=== PATIENT | female | born 1990 | race Caucasian/White ===

== ENCOUNTER 2017-12-12 20:10 | Emergency (ER) | payer OTHER ==
[2017-12-12 20:17] VITALS: BP 134/81
--- NOTE | 2017-12-12 20:41 | RADIOLOGY REPORT (SQ) ---
EXAM DESCRIPTION: CHEST PA/LAT COMPLETED DATE/TIME: 12/12/2017 8:24 pm REASON FOR STUDY: cough COMPARISON: 02/03/2016 EXAM PARAMETERS: NUMBER OF VIEWS: two views TECHNIQUE: Digital Frontal and Lateral radiographic views of the chest acquired. RADIATION DOSE: NA LIMITATIONS: none FINDINGS: LUNGS AND PLEURA: No opacities, masses or pneumothorax. No pleural effusion. MEDIASTINUM AND HILAR STRUCTURES: No masses or contour abnormalities. HEART AND VASCULAR STRUCTURES: Heart normal size. No evidence for failure. BONES: No acute findings. HARDWARE: None in the chest. OTHER: No other significant finding. IMPRESSION: NO SIGNIFICANT RADIOGRAPHIC FINDING IN THE CHEST. TECHNICAL DOCUMENTATION: JOB ID: [id number] [employer]- All Rights Reserved
== END 2017-12-12 22:00 | disposition left against medical advice (07) ==
LOC: ER 20:10
DX: Z53.21 Procedure and treatment not carried out due to patient leaving prior to being seen by health care provider (principal)
CPT/HCPCS: 71046

== ENCOUNTER 2018-03-16 23:20 | Emergency (ER) | payer BC, OTHER ==
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
[2018-03-17 00:11] LABS: ABSOLUTE BASOPHILS # (AUTO) 0.1 10^3/uL (0.0-0.2); ABSOLUTE EOSINOPHILS # (AUTO) 0.2 10^3/uL (0.0-0.6); ABSOLUTE LYMPHOCYTES (AUTO) 1.7 10^3/uL (0.5-4.7); ABSOLUTE MONOCYTES (AUTO) 0.5 10^3/uL (0.1-1.4); ABSOLUTE NEUT (AUTO) 4.8 10^3/uL (1.7-8.2); BASOPHILS % (AUTO) 1.1 % (0-2); EOSINOPHILS % (AUTO) 2.5 % (0-6); HEMATOCRIT 39.5 % (36.0-47.0); HEMOGLOBIN 13.6 g/dL (12.0-15.5); LYMPHOCYTES % (AUTO) 23.7 % (13-45); MEAN CORPUSCULAR HEMOGLOBIN 30.4 pg (27.0-33.4); MEAN CORPUSCULAR HGB CONC 34.4 g/dL (32.0-36.0); MEAN CORPUSCULAR VOLUME 89 fl (80-97); PLATELET COUNT 320 10^3/uL (150-450); RED BLOOD COUNT 4.46 10^6/uL (3.72-5.28); RED CELL DISTRIBUTION WIDTH 13.2 % (11.5-14.0); SEGMENTED NEUTROPHILS % (AUTO) 65.7 % (42-78); TOTAL CELLS COUNTED % (AUTO) 100 %; WHITE BLOOD COUNT 7.3 10^3/uL (4.0-10.5)
[2018-03-17 00:16] LABS: ALANINE AMINOTRANSFERASE 28 U/L (9-52); ALBUMIN 4.4 g/dL (3.5-5.0); ALKALINE PHOSPHATASE 75 U/L (38-126); ANION GAP 13 (5-19); ASPARTATE AMINO TRANSFERASE 20 U/L (14-36); BILIRUBIN,DIRECT 0.1 mg/dL (0.0-0.4); BILIRUBIN,TOTAL 0.2 mg/dL (0.2-1.3); BLOOD UREA NITROGEN 14 mg/dL (7-20); CALCIUM 9.6 mg/dL (8.4-10.2); CARBON DIOXIDE 24 mmol/L (22-30); CHLORIDE 105 mmol/L (98-107); GLUCOSE 125 mg/dL (75-110); POTASSIUM 4.2 mmol/L (3.6-5.0); SODIUM 141.8 mmol/L (137-145); TOTAL PROTEIN 6.8 g/dL (6.3-8.2)
[2018-03-17 00:17] LABS: ACETAMINOPHEN < 10 ug/mL (10-30); ALCOHOL < 10 mg/dL (NONE DETECTED); SALICYLATE < 1.0 mg/dL (2.0-20.0)
[2018-03-17 02:12] LABS: APPEARANCE,URINE CLOUDY; BILIRUBIN,URINE NEGATIVE (NEGATIVE); COLOR,URINE AMBER; GLUCOSE, URINE NEGATIVE (NEGATIVE); KETONES,URINE NEGATIVE (NEGATIVE); LEUKOCYTE ESTERASE,URINE SMALL (NEGATIVE); NITRITE,URINE POSITIVE (NEGATIVE); PROTEIN,URINE NEGATIVE (NEGATIVE); URINE SPECIFIC GRAVITY 1.028; UROBILINOGEN,URINE NEGATIVE mg/dL (<2.0)
[2018-03-17 03:17] LABS: URINE COCAINE SCREEN NEGATIVE
[2018-03-17 03:57] LABS: URINE BARBITURATES SCREEN NEGATIVE; URINE BENZODIAZEPINES SCREEN NEGATIVE; URINE MARIJUANA (THC) SCREEN NEGATIVE; URINE METHADONE SCREEN NEGATIVE; URINE PHENCYCLIDINE SCREEN NEGATIVE
--- NOTE | 2018-03-17 06:18 | EKG REPORT ---
SEVERITY:- NORMAL ECG - SINUS RHYTHM : Confirmed by: Navin Box MD 17-Mar-2018 06:17:42
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
--- NOTE | 2018-03-17 10:19 | ER Document Report ---
Doctor's Note Notes: 03/17/18 10:17 Patient seen and examined. She is having no signs of serotonin syndrome or Zoloft overdose. Mental health evaluated patient and did not think that patient is an active suicidal risk. She has a history of borderline personality disorder and said that this was an attention-seeking behavior. Patient provided resources for homelessness and given very strict return precautions.
[2018-03-17 12:18] VITALS: BP 127/77
== END 2018-03-17 12:17 | disposition home or self-care (01) ==
LOC: ER 23:20
DX: T43.222A Poisoning by selective serotonin reuptake inhibitors, intentional self-harm, initial encounter (principal); F60.3 Borderline personality disorder; Z63.5 Disruption of family by separation and divorce; Z79.899 Other long term (current) drug therapy
CPT/HCPCS: 36415; 80053; 80307; 81001; 84703; 85025; 93005; 93010; 99285

== ENCOUNTER 2018-04-22 11:10 | Emergency (ER) | payer BC ==
[2018-04-22 11:14] VITALS: BP 134/71
[2018-04-22] MEDS ORDERED: PROMETHAZINE HCL 25 MG TABLET PO ONE (11:25)
--- NOTE | 2018-04-22 11:31 | ER Document Report ---
ED General - General Chief Complaint: Vomiting Stated Complaint: VOMITING Time Seen by Provider: 04/22/18 11:19 Notes: 27-year-old female here with complaints of vomiting that started earlier this morning. She has had several episodes of vomiting but no diarrhea fevers chills dysuria frequency hesitancy. She has had some upper abdominal cramping that is intermittent. It is worse with vomiting. She does not currently have any. She has not tried anything for the symptoms. There is a known sick contact at work who has similar symptoms. TRAVEL OUTSIDE OF THE [place] IN LAST 30 DAYS: No - Related Data Allergies/Adverse Reactions: avocado [Avocado] Allergy (Verified 04/22/18 11:11) throat closes latex [Latex] Allergy (Verified 04/22/18 11:11) blisters,rash ondansetron [From Zofran (as hydrochloride)] Allergy (Verified 04/22/18 11:11) Raspberry Flavor, Artificial * [Raspberry Flavor, Artificial] Allergy (Verified 04/22/18 11:11) throat closes,rash Past Medical History - Social History Smoking Status: Current Every Day Smoker Chew tobacco use (# tins/day): No Frequency of alcohol use: None Drug Abuse: None Family History: Arthritis, DM, Hyperlipidemia, Hypertension, Malignancy Patient has suicidal ideation: No Patient has homicidal ideation: No - Past Medical History Cardiac Medical History: Denies: Hx Coronary Artery Disease, Hx Heart Attack, Hx Hypertension Pulmonary Medical History: Reports: Hx Bronchitis Denies: Hx Asthma, Hx COPD, Hx Pneumonia Neurological Medical History: Reports: Hx Migraine. Denies: Hx Cerebrovascular Accident, Hx Seizures Endocrine Medical History: Denies: Hx Diabetes Mellitus Type 1, Hx Diabetes Mellitus Type 2 Renal/ Medical History: Reports: Hx Ovarian Cysts. Denies: Hx Peritoneal Dialysis GI Medical History: Reports: Hx Crohn's Disease, Hx Colonoscopy Musculoskeltal Medical History: Denies Hx Arthritis, Reports Hx Musculoskeletal Trauma - 5th finger right hand Psychiatric Medical History: Reports: Hx Borderline Personality Disorder, Hx Depression, Hx Obsessive Compulsive Disorder Traumatic Medical History: Reports: Hx Fractures - 5th finger Past Surgical History: Reports: Hx Cholecystectomy, Hx Oral Surgery - wisdom teeth. Denies: Hx Hysterectomy - Immunizations Immunizations up to date: Yes Hx Diphtheria, Pertussis, Tetanus Vaccination: Yes - june 2015 Review of Systems - Review of Systems Notes: See history of present illness for pertinent positive review of systems; otherwise all review of systems have been reviewed and are negative Physical Exam - Vital signs Vitals: Temp Pulse Resp BP Pulse Ox 98.3 F 109 H 20 134/71 H 97 04/22/18 11:13 04/22/18 11:13 04/22/18 11:13 04/22/18 11:13 04/22/18 11:13 - Notes Notes: PHYSICAL EXAMINATION: GENERAL: Well-appearing and in no acute distress. HEAD: Atraumatic, normocephalic. EYES: Pupils equal round and reactive to light, extraocular movements intact, sclera anicteric, conjunctiva are normal. ENT: nares patent, oropharynx clear without exudates. Moist mucous membranes. NECK: Normal range of motion, supple without lymphadenopathy LUNGS: CTAB and equal. No wheezes rales or rhonchi. HEART: Minimally tachycardic rate and regular rhythm without murmurs ABDOMEN: Soft, no tenderness. No facial grimacing/wincing upon palpation. No guarding, no rebound. EXTREMITIES: Normal range of motion, no pitting edema. No cyanosis. NEUROLOGICAL: Cranial nerves grossly intact. Normal sensory/motor exams. PSYCH: Normal mood, normal affect. SKIN: Warm, Dry, normal turgor, no rashes or lesions noted Course - Re-evaluation Re-evalutation: 04/22/18 11:30 MEDICAL DECISION MAKING: Concern for gastrointestinal infection, most likely viral Patient allergic to Zofran so dose of Phenergan here and prescription Phenergan tabs/suppositories Patient is well-appearing nontoxic, only minimally tachycardic, do not feel IV fluids emergently needed Instructed patient on fever control with Tylenol and/or (if applicable) Motrin Also discussed keeping hydrated with water or Gatorade/Pedialyte Instructed follow-up PCP next day or few Patient understands and agrees to the plan of care - Vital Signs Vital signs: Temp Pulse Resp BP Pulse Ox 98.3 F 109 H 20 134/71 H 97 04/22/18 11:13 04/22/18 11:13 04/22/18 11:13 04/22/18 11:13 04/22/18 11:13 Discharge - Discharge Clinical Impression: Nausea vomiting and diarrhea Condition: Good Disposition: HOME, SELF-CARE Additional Instructions: You were seen in the emergency department at [facility]. You likely have a gastrointestinal infection, most likely viral. Use Motrin and/or Tylenol for fever control. Use the Zofran tablets as needed for vomiting however if you cannot keep down the tablets, use the suppositories prescribed ( both of these medicines will make you sleepy). Stay hydrated. Please followup with your primary physician in the next few days for further management/ evaluation. Please return to the emergency department for worsening of symptoms or any symptom that you deem to be concerning or life-threatening. Thank you for allowing us to be part of your care. This is your school/work note for your Emergency Department evaluation today. Prescriptions: Promethazine HCl [Phenergan 25 mg Tablet] 1 tab PO Q6H PRN #15 tablet PRN Reason: Promethazine HCl [Phenergan 25 mg Supp.rect] 1 supp WA Q6H #12 supp.rect
== END 2018-04-22 11:33 | disposition home or self-care (01) ==
LOC: ER 11:10
DX: R19.7 Diarrhea, unspecified (principal); R11.2 Nausea with vomiting, unspecified; R10.10 Upper abdominal pain, unspecified; F17.200 Nicotine dependence, unspecified, uncomplicated; Z91.040 Latex allergy status; Z90.49 Acquired absence of other specified parts of digestive tract
CPT/HCPCS: 99283

== ENCOUNTER 2018-07-30 00:53 | Emergency (ER) | payer BC ==
[2018-07-30 01:01] VITALS: BP 132/89
[2018-07-30] MEDS ORDERED: NORMAL SALINE 1000 ML 1,000 ML IV ONE (01:51)
[2018-07-30] MEDS ORDERED: METOCLOPRAMIDE HCL INJ/PF 10 MG/2 ML SDV IV ONE (01:51)
--- NOTE | 2018-07-30 01:51 | ER Document Report ---
ED GI/ - General Chief Complaint: Nausea/Vomiting Stated Complaint: THROWING UP Time Seen by Provider: 07/30/18 01:44 Notes: Patient is a 27-year-old female that comes emergency department for chief complaint of vomiting and diarrhea for the past 5 days. She denies fever. She denies dysuria, specific flank pain, vaginal bleeding or discharge. She denies any obvious contacts, raw food, recent travel, recent antibiotics. Denies any abdominal surgeries or daily medications. LMP within the past month. TRAVEL OUTSIDE OF THE [place] IN LAST 30 DAYS: No - Related Data Allergies/Adverse Reactions: avocado [Avocado] Allergy (Verified 04/22/18 11:11) throat closes latex [Latex] Allergy (Verified 04/22/18 11:11) blisters,rash ondansetron [From Zofran (as hydrochloride)] Allergy (Verified 04/22/18 11:11) Raspberry Flavor, Artificial * [Raspberry Flavor, Artificial] Allergy (Verified 04/22/18 11:11) throat closes,rash Past Medical History - General Information source: Patient - Social History Smoking Status: Current Every Day Smoker Frequency of alcohol use: None Drug Abuse: None Lives with: Family Family History: Arthritis, DM, Hyperlipidemia, Hypertension, Malignancy Patient has suicidal ideation: No Patient has homicidal ideation: No - Past Medical History Cardiac Medical History: Denies: Hx Coronary Artery Disease, Hx Heart Attack, Hx Hypertension Pulmonary Medical History: Reports: Hx Bronchitis Denies: Hx Asthma, Hx COPD, Hx Pneumonia Neurological Medical History: Reports: Hx Migraine. Denies: Hx Cerebrovascular Accident, Hx Seizures Endocrine Medical History: Denies: Hx Diabetes Mellitus Type 1, Hx Diabetes Mellitus Type 2 Renal/ Medical History: Reports: Hx Ovarian Cysts. Denies: Hx Peritoneal Dialysis GI Medical History: Reports: Hx Crohn's Disease, Hx Colonoscopy Musculoskeletal Medical History: Denies Hx Arthritis, Reports Hx Musculoskeletal Trauma - 5th finger right hand Psychiatric Medical History: Reports: Hx Borderline Personality Disorder, Hx Depression, Hx Obsessive Compulsive Disorder Traumatic Medical History: Reports: Hx Fractures - 5th finger Past Surgical History: Reports: Hx Cholecystectomy, Hx Oral Surgery - wisdom teeth. Denies: Hx Hysterectomy - Immunizations Immunizations up to date: Yes Hx Diphtheria, Pertussis, Tetanus Vaccination: Yes - june 2015 Review of Systems - Review of Systems Constitutional: No symptoms reported EENT: No symptoms reported Cardiovascular: No symptoms reported Respiratory: No symptoms reported Gastrointestinal: See HPI Genitourinary: No symptoms reported Female Genitourinary: No symptoms reported Musculoskeletal: No symptoms reported Skin: No symptoms reported Hematologic/Lymphatic: No symptoms reported Neurological/Psychological: No symptoms reported Physical Exam - Vital signs Vitals: Temp Pulse Resp BP Pulse Ox 99.2 F 88 16 132/89 H 100 07/30/18 00:57 07/30/18 00:57 07/30/18 00:57 07/30/18 00:57 07/30/18 00:57 - Notes Notes: GENERAL: Alert, interacts well. No acute distress. HEAD: Normocephalic, atraumatic. EYES: Pupils equal, round, and reactive to light. Extraocular movements intact. ENT: Oral mucosa moist, tongue midline. NECK: Full range of motion. Supple. Trachea midline. LUNGS: Clear to auscultation bilaterally, no wheezes, rales, or rhonchi. No respiratory distress. HEART: Regular rate and rhythm. No murmur ABDOMEN: Mild generalized tenderness, nondistended, no guarding, no rigidity. bowel sounds present in all 4 quadrants. EXTREMITIES: Moves all 4 extremities spontaneously. No edema, normal radial and dorsalis pedis pulses bilaterally. No cyanosis. BACK: no cervical, thoracic, lumbar midline tenderness. No saddle anesthesia, normal distal neurovascular exam. NEUROLOGICAL: Alert and oriented x3. Normal speech. [cranial nerves II through XII grossly intact]. PSYCH: Normal affect, normal mood. SKIN: Warm, dry, normal turgor. No rashes or lesions noted. Course - Re-evaluation Re-evalutation: There were labs initiated on protocol, I did evaluate the patient, she is smiling, well-appearing, has mild generalized abdominal tenderness without guarding, she is very well-appearing. Before I was able to adjust orders or further treat the patient I was told by the nursing staff that patient had suddenly eloped, running out of the department after her significant other. - Vital Signs Vital signs: Temp Pulse Resp BP Pulse Ox 99.2 F 88 16 132/89 H 100 07/30/18 00:57 07/30/18 00:57 07/30/18 00:57 07/30/18 00:57 07/30/18 00:57 - Laboratory Result Diagrams: 07/30/18 02:00 07/30/18 02:00 Laboratory results interpreted by me: 07/30/18 07/30/18 02:00 02:00 RDW 14.1 H Eosinophils % 8.8 H Absolute Eosinophils 0.9 H Urine Protein 30 H Urine Bilirubin SMALL H Urine Urobilinogen 4.0 H Ur Leukocyte Esterase LARGE H Discharge - Discharge Clinical Impression: Abdominal pain Qualifiers: Abdominal location: generalized Qualified Code(s): R10.84 - Generalized abdominal pain Condition: Stable Disposition: ELOPED
[2018-07-30 02:23] LABS: ABSOLUTE BASOPHILS # (AUTO) 0.1 10^3/uL (0.0-0.2); ABSOLUTE EOSINOPHILS # (AUTO) 0.9 10^3/uL (0.0-0.6); ABSOLUTE LYMPHOCYTES (AUTO) 3.1 10^3/uL (0.5-4.7); ABSOLUTE MONOCYTES (AUTO) 0.6 10^3/uL (0.1-1.4); ABSOLUTE NEUT (AUTO) 5.4 10^3/uL (1.7-8.2); BASOPHILS % (AUTO) 1.5 % (0-2); EOSINOPHILS % (AUTO) 8.8 % (0-6); HEMATOCRIT 43.4 % (36.0-47.0); HEMOGLOBIN 14.7 g/dL (12.0-15.5); LYMPHOCYTES % (AUTO) 30.6 % (13-45); MEAN CORPUSCULAR HEMOGLOBIN 29.2 pg (27.0-33.4); MEAN CORPUSCULAR HGB CONC 33.9 g/dL (32.0-36.0); MEAN CORPUSCULAR VOLUME 86 fl (80-97); MONOCYTES % (AUTO) 6.3 % (3-13); PLATELET COUNT 318 10^3/uL (150-450); RED BLOOD COUNT 5.04 10^6/uL (3.72-5.28); RED CELL DISTRIBUTION WIDTH 14.1 % (11.5-14.0); SEGMENTED NEUTROPHILS % (AUTO) 52.8 % (42-78); TOTAL CELLS COUNTED % (AUTO) 100 %; WHITE BLOOD COUNT 10.1 10^3/uL (4.0-10.5)
[2018-07-30 02:33] LABS: APPEARANCE,URINE CLOUDY; BILIRUBIN,URINE SMALL (NEGATIVE); COLOR,URINE AMBER; GLUCOSE, URINE NEGATIVE (NEGATIVE); KETONES,URINE NEGATIVE (NEGATIVE); LEUKOCYTE ESTERASE,URINE LARGE (NEGATIVE); NITRITE,URINE NEGATIVE (NEGATIVE); PROTEIN,URINE 30 mg/dL (NEGATIVE); URINE SPECIFIC GRAVITY 1.029
[2018-07-30 02:34] LABS: ALANINE AMINOTRANSFERASE 15 U/L (9-52); ALBUMIN 4.4 g/dL (3.5-5.0); ALKALINE PHOSPHATASE 95 U/L (38-126); ANION GAP 11 (5-19); ASPARTATE AMINO TRANSFERASE 22 U/L (14-36); BILIRUBIN,DIRECT 0.3 mg/dL (0.0-0.4); BILIRUBIN,TOTAL 0.3 mg/dL (0.2-1.3); BLOOD UREA NITROGEN 12 mg/dL (7-20); CALCIUM 9.9 mg/dL (8.4-10.2); CARBON DIOXIDE 27 mmol/L (22-30); CHLORIDE 105 mmol/L (98-107); GLUCOSE 84 mg/dL (75-110); LIPASE 39.4 U/L (23-300); POTASSIUM 4.3 mmol/L (3.6-5.0); TOTAL PROTEIN 8.1 g/dL (6.3-8.2)
== END 2018-07-30 02:26 | disposition left against medical advice (07) ==
LOC: ER 00:53
DX: R10.84 Generalized abdominal pain (principal); R11.2 Nausea with vomiting, unspecified; F17.200 Nicotine dependence, unspecified, uncomplicated; Z91.040 Latex allergy status; Z90.49 Acquired absence of other specified parts of digestive tract
CPT/HCPCS: 99281; 96374; 36415; 83690; 85025; 80053; 81001; J2765; J7030

== ENCOUNTER 2019-02-25 23:56 | Emergency (ER) | payer BC ==
[2019-02-26] MEDS ORDERED: ACTIVATED CHARCOAL 25 GM BOTTLE PO ONE (00:12)
[2019-02-26] MEDS ORDERED: NORMAL SALINE 1000 ML 1,000 ML IV ONE ×2 (00:14→01:30)
[2019-02-26 00:48] LABS: ABSOLUTE BASOPHILS # (AUTO) 0.1 10^3/uL (0.0-0.2); ABSOLUTE EOSINOPHILS # (AUTO) 0.1 10^3/uL (0.0-0.6); ABSOLUTE MONOCYTES (AUTO) 0.4 10^3/uL (0.1-1.4); ABSOLUTE NEUT (AUTO) 4.5 10^3/uL (1.7-8.2); BASOPHILS % (AUTO) 1.1 % (0-2); EOSINOPHILS % (AUTO) 1.4 % (0-6); HEMATOCRIT 39.8 % (36.0-47.0); HEMOGLOBIN 13.9 g/dL (12.0-15.5); LYMPHOCYTES % (AUTO) 28.4 % (13-45); MEAN CORPUSCULAR HEMOGLOBIN 29.5 pg (27.0-33.4); MEAN CORPUSCULAR HGB CONC 34.8 g/dL (32.0-36.0); MEAN CORPUSCULAR VOLUME 85 fl (80-97); PLATELET COUNT 257 10^3/uL (150-450); RED BLOOD COUNT 4.71 10^6/uL (3.72-5.28); RED CELL DISTRIBUTION WIDTH 13.5 % (11.5-14.0); SEGMENTED NEUTROPHILS % (AUTO) 63.1 % (42-78); TOTAL CELLS COUNTED % (AUTO) 100 %; WHITE BLOOD COUNT 7.1 10^3/uL (4.0-10.5)
[2019-02-26 01:08] LABS: ALANINE AMINOTRANSFERASE 29 U/L (9-52); ALBUMIN 4.3 g/dL (3.5-5.0); ALKALINE PHOSPHATASE 84 U/L (38-126); ANION GAP 10 (5-19); ASPARTATE AMINO TRANSFERASE 31 U/L (14-36); BILIRUBIN,DIRECT 0.2 mg/dL (0.0-0.4); BILIRUBIN,TOTAL 0.5 mg/dL (0.2-1.3); BLOOD UREA NITROGEN 14 mg/dL (7-20); CALCIUM 9.3 mg/dL (8.4-10.2); CARBON DIOXIDE 23 mmol/L (22-30); CHLORIDE 105 mmol/L (98-107); GLUCOSE 115 mg/dL (75-110); POTASSIUM 3.5 mmol/L (3.6-5.0); SODIUM 138.3 mmol/L (137-145); TOTAL PROTEIN 7.6 g/dL (6.3-8.2)
[2019-02-26 01:14] LABS: ACETAMINOPHEN < 10 ug/mL (10-30); ALCOHOL < 10 mg/dL (NONE DETECTED); SALICYLATE < 1.0 mg/dL (2.0-20.0)
--- NOTE | 2019-02-26 01:14 | ER Document Report ---
Addendum entered and electronically signed by PIPPA HERMAN LCSWA 02/26/19 11:06: Discharge - Discharge Clinical Impression: Suicide attempt, initial encounter, Severe major depression, Borderline persona lity disorder Drug overdose Qualifiers: Encounter type: initial encounter Injury intent: intentional self-harm Qualified Code(s): T50.902A - Poisoning by unspecified drugs, medicaments and biological substances, intentional self-harm, initial encounter Condition: Stable Disposition: HOME, SELF-CARE Additional Instructions: You have been evaluated both medical and behavioral health teams have been deemed appropriate for discharge. You are highly encouraged to follow-up with your outpatient mental health provider, [facility] for continued medication management. You are also encouraged to start engaging in Cognitive Behavioral Therapy to assist you in reinterpreting in your environment, learning triggers and building coping skills. You have provided a local resource list of area providers including mobile crisis contact information. DEPRESSION: Your evaluation reveals that you have mental depression. While symptoms may be vague, they often include disturbance of sleep, fatigue, loss of appetite, and general loss of interest in life. While depression may be a side effect of drugs, or a reaction to a major change in your life, many cases have no known cause. If depression is acute, and related to a major loss in your life, you can expect it to clear completely with time. If you have been depressed a long time, are prone to repeated bouts of depression or low mood, or have been thinking of suicide, get help. Depression can be treated with anti-depressant medication and counselling. Long-term depression will often take a few weeks to clear, even with appropriate medication. Follow-up care is important. SUICIDAL IDEATION: Suicidal ideation is a common medical term for thoughts about suicide, which may be as detailed as a formulated plan, without the suicidal act itself. Although most people who undergo suicidal ideation do not commit suicide, some go on to make suicide attempts. The range of suicidal ideation varies greatly from fleeting to detailed planning, role playing, and unsuccessful attempts. While thoughts about suicide are common, most people do not carry out serious actions to commit suicide. Based upon your evaluation and discussion with you, we do not believe you are currently at risk to act upon your thoughts of suicide. You have agreed to return to the Emergency Department, at any time, if you feel inclined to act upon your suicidal thoughts. FOLLOW-UP CARE: If you have been referred to a physician for follow-up care, call the physicians office for an appointment as you were instructed or within the next two days. If you experience worsening or a significant change in your symptoms, notify the physician immediately or return to the Emergency Department at any time for re-evaluation. Referrals: HITESH NAVARRO PA-C [Primary Care Provider] - Follow up as needed [facility] [Outside] - Follow up as needed [facility] [Outside] - Follow up in 3-5 days Addendum entered and electronically signed by MATTHEW MENENDEZ DO 02/26/19 08:00: Course - Re-evaluation Re-evalutation: 02/26/19 08:00 Patient with overdose of Seroquel ranula patient this morning at 730 alert oriented x3 no obvious distress we will medically clear for psych to see - Vital Signs Vital signs: Temp Pulse Resp BP Pulse Ox 98.2 F 15 118/67 95 02/26/19 06:00 02/26/19 06:00 02/26/19 06:00 02/26/19 06:00 - Laboratory Result Diagrams: 02/26/19 00:34 02/26/19 00:34 Laboratory results interpreted by me: 02/26/19 02/26/19 00:34 01:25 Potassium 3.5 L Glucose 115 H Urine Ketones TRACE H Urine Blood SMALL H Ur Leukocyte Esterase TRACE H Salicylates < 1.0 L Acetaminophen < 10 L Original Note: ED Psych Disorder / Suicide - General Chief Complaint: Overdose Stated Complaint: SUICIDAL IDEATION Time Seen by Provider: 02/26/19 00:11 Primary Care Provider: HITESH NAVARRO PA-C [Primary Care Provider] - Follow up as needed Mode of Arrival: Ambulatory Information source: Patient Notes: Patient told me that she overdosed on 25 tablets of 25 mg of Seroquel and 2 tablets of 400 mg of Seroquel around 11:30 PM tonight. She says she did that in an attempt to kill herself because she was so depressed after she found out that her was cheating on her. Patient has a history of PTSD, severe depressi on, anxiety and interstitial cystitis. Patient is alert and awake currently and she is able to answer all my questions. She also says she attempted suicide last year he by overdosing on medication. Patient admits to having suicidal ideation. Poison control was immediately called by the charge nurse and they recommend activated charcoal by mouth, symptomatic treatment, EKG, labs, IV fluids and monitoring the patient for a minimum of 6-8 hours. TRAVEL OUTSIDE OF THE [place] IN LAST 30 DAYS: No - HPI Patient complains to provider of: Suicidal ideation, Suicidal attempt Onset: Just prior to arrival Onset was: Sudden Quality of pain: No pain Severity: None Pain Level: Denies Suicide Risk Factors: Depressed, Prior suicide attempt Situational problems related to: Significant other, Spouse Suicide Attempt Method: Overdose Overdose of: Other - Seroquel Normal mood: No Associated symptoms: Depressed Similar symptoms previously: Yes Recently seen / treated by doctor: No - Related Data Allergies/Adverse Reactions: avocado [Avocado] Allergy (Verified 04/22/18 11:11) throat closes latex [Latex] Allergy (Verified 04/22/18 11:11) blisters,rash ondansetron [From Zofran (as hydrochloride)] Allergy (Verified 04/22/18 11:11) Raspberry Flavor, Artificial * [Raspberry Flavor, Artificial] Allergy (Verified 04/22/18 11:11) throat closes,rash Past Medical History - Social History Smoking Status: Unknown if Ever Smoked Family History: Arthritis, DM, Hyperlipidemia, Hypertension, Malignancy - Past Medical History Cardiac Medical History: Denies: Hx Coronary Artery Disease, Hx Heart Attack, Hx Hypertension Pulmonary Medical History: Reports: Hx Bronchitis Denies: Hx Asthma, Hx COPD, Hx Pneumonia Neurological Medical History: Reports: Hx Migraine. Denies: Hx Cerebrovascular Accident, Hx Seizures Endocrine Medical History: Denies: Hx Diabetes Mellitus Type 1, Hx Diabetes Mellitus Type 2 Renal/ Medical History: Reports: Hx Ovarian Cysts. Denies: Hx Peritoneal Dialysis GI Medical History: Reports: Hx Crohn's Disease, Hx Colonoscopy Musculoskeletal Medical History: Denies Hx Arthritis, Reports Hx Musculoskeletal Trauma - 5th finger right hand Psychiatric Medical History: Reports: Hx Borderline Personality Disorder, Hx Depression, Hx Obsessive Compulsive Disorder Traumatic Medical History: Reports: Hx Fractures - 5th finger Past Surgical History: Reports: Hx Cholecystectomy, Hx Oral Surgery - wisdom teeth. Denies: Hx Hysterectomy - Immunizations Immunizations up to date: Yes Hx Diphtheria, Pertussis, Tetanus Vaccination: Yes - june 2015 Review of Systems - Review of Systems Constitutional: No symptoms reported EENT: No symptoms reported Cardiovascular: No symptoms reported Respiratory: No symptoms reported Gastrointestinal: No symptoms reported Genitourinary: No symptoms reported Female Genitourinary: No symptoms reported Musculoskeletal: No symptoms reported Skin: No symptoms reported Hematologic/Lymphatic: No symptoms reported Neurological/Psychological: No symptoms reported -: Yes All other systems reviewed and negative Physical Exam - Vital signs Vitals: Resp 26 H 02/26/19 00:08 Interpretation: Normal - General General appearance: Appears well, Alert - HEENT Head: Normocephalic, Atraumatic Eyes: Normal Pupils: PERRL - Respiratory Respiratory status: No respiratory distress Chest status: Nontender Breath sounds: Normal Chest palpation: Normal - Cardiovascular Rhythm: Regular Heart sounds: Normal auscultation Murmur: No - Abdominal Inspection: Normal Distension: No distension Bowel sounds: Normal Tenderness: Nontender Organomegaly: No organomegaly - Back Back: Normal, Nontender - Extremities General upper extremity: Normal inspection, Nontender, Normal color, Normal ROM, Normal temperature General lower extremity: Normal inspection, Nontender, Normal color, Normal ROM, Normal temperature, Normal weight bearing. No: Мария's sign - Neurological Neuro grossly intact: Yes Cognition: Normal Orientation: AAOx4 Rex Coma Scale Eye Opening: Spontaneous Otis Coma Scale Verbal: Oriented Otis Coma Scale Motor: Obeys Commands Rex Coma Scale Total: 15 Speech: Normal Motor strength normal: LUE, RUE, LLE, RLE Sensory: Normal - Psychological Associated symptoms: Normal affect, Normal mood - Skin Skin Temperature: Warm Skin Moisture: Dry Skin Color: Normal Course - Re-evaluation Re-evalutation: 02/26/19 01:23 On reevaluation patient is still awake and has no new complaints. 02/26/19 05:45 Patient is medically cleared for psychiatric evaluation. - Vital Signs Vital signs: Temp Pulse Resp BP Pulse Ox 98.2 F 16 126/86 H 95 02/26/19 05:00 02/26/19 05:00 02/26/19 05:00 02/26/19 05:00 - Laboratory Result Diagrams: 02/26/19 00:34 02/26/19 00:34 Laboratory results interpreted by me: 02/26/19 02/26/19 00:34 01:25 Potassium 3.5 L Glucose 115 H Urine Ketones TRACE H Urine Blood SMALL H Ur Leukocyte Esterase TRACE H Salicylates < 1.0 L Acetaminophen < 10 L - EKG Interpretation by Me EKG shows normal: Sinus rhythm Rate: Tachycardia - 113 When compared to previous EKG there are: Changes noted Additional EKG results interpreted by me: 02/26/19 01:24 Sinus tachycardia otherwise no change from previous EKG on March 17, 2018. Normal intervals. No ST elevation HI. Critical Care Note - Critical Care Note Total time excluding time spent on procedures (mins): 55 Discharge - Discharge Clinical Impression: Suicide attempt, initial encounter, Severe major depression Drug overdose Qualifiers: Encounter type: initial encounter Injury intent: intentional self-harm Qualified Code(s): T50.902A - Poisoning by unspecified drugs, medicaments and biological substances, intentional self-harm, initial encounter Condition: Stable Disposition: PSYCH HOSP/UNIT Referrals: HITESH NAVARRO PA-C [Primary Care Provider] - Follow up as needed
[2019-02-26 02:16] LABS: APPEARANCE,URINE SLIGHTLY-CLOUDY; BILIRUBIN,URINE NEGATIVE (NEGATIVE); COLOR,URINE STRAW; GLUCOSE, URINE NEGATIVE (NEGATIVE); KETONES,URINE TRACE mg/dL (NEGATIVE); LEUKOCYTE ESTERASE,URINE TRACE (NEGATIVE); NITRITE,URINE NEGATIVE (NEGATIVE); PROTEIN,URINE NEGATIVE (NEGATIVE); URINE SPECIFIC GRAVITY 1.003; UROBILINOGEN,URINE NEGATIVE mg/dL (<2.0)
[2019-02-26 02:30] LABS: URINE AMPHETAMINES SCREEN NEGATIVE; URINE BARBITURATES SCREEN NEGATIVE; URINE BENZODIAZEPINES SCREEN NEGATIVE; URINE COCAINE SCREEN NEGATIVE; URINE MARIJUANA (THC) SCREEN NEGATIVE; URINE METHADONE SCREEN NEGATIVE
[2019-02-26 02:34] LABS: URINE PHENCYCLIDINE SCREEN NEGATIVE
[2019-02-26 09:34] VITALS: BP 112/87
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
--- NOTE | 2019-02-26 14:43 | ER Document Report ---
Doctor's Note Notes: 02/26/19 14:42 Patient seen and evaluated. She is awake, ambulate in without difficulty and has no current complaints. Eye contact is good. She is remorseful about the events of last night and is denying any suicidal ideation now. She states she feels comfortable being discharged home with her mother. Mother is also at bedside and feels comfortable with patient being discharged into her care. She will be with her and will assist with outpatient follow-up. At this time patient is stable for discharge. She was encouraged to follow-up as directed. She was also encouraged to return for any new concerning symptoms.
--- NOTE | 2019-02-26 14:47 | EKG REPORT ---
SEVERITY:- BORDERLINE ECG - SINUS TACHYCARDIA BORDERLINE T WAVE ABNORMALITIES : Confirmed by: Cassie Kline MD 26-Feb-2019 14:46:42
== END 2019-02-26 13:10 | disposition home or self-care (01) ==
LOC: ER 23:56
DX: T43.592A Poisoning by other antipsychotics and neuroleptics, intentional self-harm, initial encounter (principal); F32.9 Major depressive disorder, single episode, unspecified; F60.3 Borderline personality disorder; R00.0 Tachycardia, unspecified; Z63.0 Problems in relationship with spouse or partner; Z91.018 Allergy to other foods; Z91.040 Latex allergy status; Z88.8 Allergy status to other drugs, medicaments and biological substances
CPT/HCPCS: 93005; 99291; 96360; 96361; 36415; 80307 ×4; 83735; 84443; 84703; 85025; 80053; 81001; 93010; J7030; J3490

== ENCOUNTER 2019-03-11 12:47 | Emergency (ER) | payer BC ==
[2019-03-11 13:08] VITALS: BP 137/77
--- NOTE | 2019-03-11 13:33 | ER Document Report ---
HPI - HPI Patient complains to provider of: sore throat, ear pain Time Seen by Provider: 03/11/19 13:23 Onset: Other - saturday Quality of pain: Achy Severity: Severe Pain Level: 5 Context: Patient presents to the emergency department with complaints of sore throat ear pain since Saturday. Denies vomiting diarrhea reports possible fever she did not check. No recent exposure to strep. Patient reports it hurts to swallow. Patient is talking in clear voice no trismus. Associated Symptoms: Earache, Sore throat Exacerbated by: Denies Relieved by: Denies Similar symptoms previously: No Recently seen / treated by doctor: No - CONSTITUTIONAL Constitutional: REPORTS: Fever - EENT EENT: REPORTS: Sore Throat, Ear Pain - REPRODUCTIVE Reproductive: DENIES: : Past Medical History - General Information source: Patient Last Menstrual Period: 02/27/19 SA, No bc - Social History Smoking Status: Current Every Day Smoker Chew tobacco use (# tins/day): No Frequency of alcohol use: None Drug Abuse: None Lives with: Family Family History: Arthritis, DM, Hyperlipidemia, Hypertension, Malignancy Patient has suicidal ideation: No Patient has homicidal ideation: No - Past Medical History Cardiac Medical History: Denies: Hx Coronary Artery Disease, Hx Heart Attack, Hx Hypertension Pulmonary Medical History: Reports: Hx Asthma, Hx Bronchitis Denies: Hx COPD, Hx Pneumonia Neurological Medical History: Reports: Hx Migraine. Denies: Hx Cerebrovascular Accident, Hx Seizures Endocrine Medical History: Denies: Hx Diabetes Mellitus Type 1, Hx Diabetes Mellitus Type 2 Renal/ Medical History: Reports: Hx Ovarian Cysts. Denies: Hx Peritoneal Dialysis GI Medical History: Reports: Hx Crohn's Disease, Hx Colonoscopy Musculoskeletal Medical History: Denies Hx Arthritis, Reports Hx Musculoskeletal Trauma - 5th finger right hand Psychiatric Medical History: Reports: Hx Borderline Personality Disorder, Hx Depression, Hx Obsessive Compulsive Disorder Traumatic Medical History: Reports: Hx Fractures - 5th finger Past Surgical History: Reports: Hx Cholecystectomy, Hx Oral Surgery - wisdom teeth. Denies: Hx Hysterectomy - Immunizations Immunizations up to date: Yes Hx Diphtheria, Pertussis, Tetanus Vaccination: Yes - june 2015 Vertical Provider Document - CONSTITUTIONAL Agree With Documented VS: Yes Exam Limitations: No Limitations General Appearance: WD/WN, No Apparent Distress - INFECTION CONTROL TRAVEL OUTSIDE OF THE [place] IN LAST 30 DAYS: No - HEENT HEENT: Atraumatic, Normocephalic, Pharyngeal Exudate - opens Mouth wide no trismus, Pharyngeal Tenderness, Pharyngeal Erythema. negative: Conjuctival Injection, Tympanic Membrane Red, Tympanic Membrane Bulging - NECK Neck: Normal Inspection, Supple. negative: Lymphadenopathy-Left, Lymphadenopathy-Right - RESPIRATORY Respiratory: Breath Sounds Normal, No Respiratory Distress - CARDIOVASCULAR Cardiovascular: Regular Rate, Regular Rhythm - GI/ABDOMEN Gastrointestinal: Abdomen Soft, Abdomen Non-Tender - MUSCULOSKELETAL/EXTREMETIES Musculoskeletal/Extremeties: MAEW, FROM - NEURO Level of Consciousness: Awake, Alert, Appropriate Motor/Sensory: No Motor Deficit - DERM Integumentary: Warm, Dry Course - Re-evaluation Re-evalutation: 03/12/19 09:16 Patient UA shows positive nitrite but reports she has interstitial cystitis and is not having any pain at this time. She reports her urine always shows positive nitrite. Patient was treated for strep. Patient reports feeling much better. She was instructed on discharge to return for any concerns. She verbalized understanding. Dictation of this chart was performed using voice recognition software; therefore, there may be some unintended grammatical errors. - Vital Signs Vital signs: Temp Pulse Resp BP Pulse Ox 98.4 F 104 H 18 137/77 H 97 03/11/19 13:06 03/11/19 13:06 03/11/19 13:06 03/11/19 13:06 03/11/19 13:06 Discharge - Discharge Clinical Impression: Sore throat, Strep sore throat Ear pain Qualifiers: Laterality: bilateral Qualified Code(s): H92.03 - Otalgia, bilateral Condition: Stable Disposition: HOME, SELF-CARE Instructions: Penicillins ([facility]), Sore Throat ([facility]), Steroid Medication Injection, Strep Throat ([facility]) Additional Instructions: *You have been evaluated for a sore throat, ear pain, strep throat *Take tylenol as indicated *Warm salt water gargles and throat lozenges for comfort *Change toothbrush *Do not let anyone drink/eat after you *Good hand washing *Follow-up with a primary care provider within one week for recheck *Return to ED for worsening condition change, needs, trouble swallowing, increased swelling, increased pain Referrals: HITESH NAVARRO PA-C [Primary Care Provider] - Follow up in 1 week
[2019-03-11 13:53] LABS: AMORPHOUS SEDIMENT,URINE TRACE /HPF; APPEARANCE,URINE CLOUDY; BILIRUBIN,URINE NEGATIVE (NEGATIVE); COLOR,URINE AMBER; GLUCOSE, URINE NEGATIVE (NEGATIVE); KETONES,URINE TRACE mg/dL (NEGATIVE); LEUKOCYTE ESTERASE,URINE SMALL (NEGATIVE); NITRITE,URINE POSITIVE (NEGATIVE); PROTEIN,URINE 30 mg/dL (NEGATIVE); URINE SPECIFIC GRAVITY 1.025; UROBILINOGEN,URINE NEGATIVE mg/dL (<2.0)
[2019-03-11] MEDS ORDERED: PENICILLIN G BENZATHINE 1.2 MILLION UNIT/2 ML DISP.SYRIN IM ONE (14:04)
[2019-03-11] MEDS ORDERED: DEXAMETHASONE SOD PHOS INJ 10 MG/1 ML VIAL IM ONE (14:04)
== END 2019-03-11 14:24 | disposition home or self-care (01) ==
LOC: ER 12:47
DX: J02.0 Streptococcal pharyngitis (principal); H92.03 Otalgia, bilateral; N30.10 Interstitial cystitis (chronic) without hematuria; F17.200 Nicotine dependence, unspecified, uncomplicated; J45.909 Unspecified asthma, uncomplicated
CPT/HCPCS: 99283; 96372; 87880; 81025; 81001; J0561; J1100

== ENCOUNTER 2019-06-27 16:30 | Emergency (ER) | payer BC ==
--- NOTE | 2019-06-27 16:45 | ER Document Report ---
HPI - HPI Time Seen by Provider: 06/27/19 16:45 Pain Level: 3 Notes: 20-year-old female presents the ED for complaints of dysuria frequency x2 days. has a history of interstitial cystitis. Has not tried any [id number] medications. So. Was June 17. Patient states this does not feel like interstitial cystitis, due to dysuria. Denies any vaginal discharge pelvic pain. Denies fevers, chills, chest pain,palpitations, shortness of breath, dyspnea, nausea, vomiting, diarrhea, abdominal pain, hematuria,weakness, bowel or bladder dysfunction,numbness or tingling in bilateral upper or lower extremities equally, muscle paralysis, weakness in bilateral upper or lower extremities equally or rash. - REPRODUCTIVE Reproductive: DENIES: : Past Medical History - General Information source: Patient - Social History Smoking Status: Unknown if Ever Smoked Family History: Arthritis, DM, Hyperlipidemia, Hypertension, Malignancy - Past Medical History Cardiac Medical History: Denies: Hx Coronary Artery Disease, Hx Heart Attack, Hx Hypertension Pulmonary Medical History: Reports: Hx Asthma, Hx Bronchitis Denies: Hx COPD, Hx Pneumonia Neurological Medical History: Reports: Hx Migraine. Denies: Hx Cerebrovascular Accident, Hx Seizures Endocrine Medical History: Denies: Hx Diabetes Mellitus Type 1, Hx Diabetes Mellitus Type 2 Renal/ Medical History: Reports: Hx Ovarian Cysts. Denies: Hx Peritoneal Dialysis GI Medical History: Reports: Hx Crohn's Disease, Hx Colonoscopy Musculoskeletal Medical History: Denies Hx Arthritis, Reports Hx Musculoskeletal Trauma - 5th finger right hand Psychiatric Medical History: Reports: Hx Borderline Personality Disorder, Hx D epression, Hx Obsessive Compulsive Disorder Traumatic Medical History: Reports: Hx Fractures - 5th finger Past Surgical History: Reports: Hx Cholecystectomy, Hx Oral Surgery - wisdom teeth. Denies: Hx Hysterectomy - Immunizations Immunizations up to date: Yes Hx Diphtheria, Pertussis, Tetanus Vaccination: Yes - june 2015 Vertical Provider Document - CONSTITUTIONAL Agree With Documented VS: Yes Notes: PHYSICAL EXAMINATION: GENERAL: Well-appearing, well-nourished and in no acute distress. HEAD: Atraumatic, normocephalic. EYES: Pupils equal round and reactive to light, extraocular movements intact, conjunctiva are normal. ENT: Nares patent, oropharynx clear without exudates. Moist mucous membranes. NECK: Normal range of motion, supple without lymphadenopathy LUNGS: Breath sounds clear to auscultation bilaterally and equal. No wheezes rales or rhonchi. HEART: Regular rate and rhythm without murmurs ABDOMEN: Soft, nontender, nondistended abdomen, noted suprapubic tenderness on palpation. No guarding, no rebound. No masses appreciated. Female : deferred Musculoskeletal: Normal range of motion, no pitting or edema. No cyanosis. NEUROLOGICAL: Cranial nerves grossly intact. Normal speech, normal gait. Normal sensory, motor exams PSYCH: Normal mood, normal affect. SKIN: Warm, Dry, normal turgor, no rashes or lesions noted. - INFECTION CONTROL TRAVEL OUTSIDE OF THE [place] IN LAST 30 DAYS: No Course - Re-evaluation Re-evalutation: 06/27/19 17:13 20-year-old female, vitals stable, nursing notes reviewed, afebrile. Urinalysis shows Increase oral hydration. Take antibiotics as directed, take with food to prevent any GI upset. Your daily to prevent loose stool. Follow-up with primary care provider for reevaluation of UTI with a urinalysis after prescription has finished. After performing a Medical Screening Examination, I estimate there is LOW risk for ACUTE APPENDICITIS, BOWEL OBSTRUCTION, ACUTE CHOLECYSTITIS, PERFORATED DIVERTICULITIS, INCARCERATED HERNIA, PANCREATITIS, PELVIC INFLAMMATORY DISEASE, PERFORATED ULCER, ECTOPIC , or TUBO-OVARIAN ABSCESS, thus I consider the discharge disposition reasonable. Also, there is no evidence or peritonitis, sepsis, or toxicity. I have reevaluated this patient multiple times and no significant life threatening changes are noted. The patient and I have discussed the diagnosis and risks, and we agree with discharging home with close follow-up with the understanding that symptoms and presentations can change. We also discussed returning to the Emergency Department immediately if new or worsening symptoms occur. We have discussed the symptoms which are most concerning (e.g., bloody stool, fever, changing or worsening pain, vomiting) that necessitate immediate return. - Vital Signs Vital signs: Temp Pulse Resp BP Pulse Ox 98.8 F 96 21 H 130/68 H 98 06/27/19 16:35 06/27/19 16:35 06/27/19 16:35 06/27/19 16:35 06/27/19 16:35 Discharge - Discharge Clinical Impression: UTI (urinary tract infection) Condition: Stable Disposition: HOME, SELF-CARE Instructions: Urinary Tract Infection ([facility]), Nitrofurantoin ([facility]), Urinary Anesthetic Agent ([facility]) Prescriptions: Nitrofurantoin Macrocrystal [Macrodantin] 100 mg PO BID #20 capsule Phenazopyridine HCl [Pyridium] 200 mg PO TIDP PRN #9 tablet PRN Reason: Referrals: HITESH NAVARRO PA-C [Primary Care Provider] - Follow up as needed MIGUELITO STEINBERG MD [ACTIVE STAFF] - Follow up as needed
[2019-06-27 17:21] LABS: APPEARANCE,URINE CLOUDY; BILIRUBIN,URINE NEGATIVE (NEGATIVE); COLOR,URINE YELLOW; GLUCOSE, URINE NEGATIVE (NEGATIVE); KETONES,URINE NEGATIVE (NEGATIVE); LEUKOCYTE ESTERASE,URINE LARGE (NEGATIVE); NITRITE,URINE POSITIVE (NEGATIVE); PROTEIN,URINE NEGATIVE (NEGATIVE); URINE SPECIFIC GRAVITY 1.017; UROBILINOGEN,URINE NEGATIVE mg/dL (<2.0)
[2019-06-27 17:48] VITALS: BP 110/69
== END 2019-06-27 17:47 | disposition home or self-care (01) ==
LOC: ER 16:30
DX: N39.0 Urinary tract infection, site not specified (principal); R30.0 Dysuria; R35.0 Frequency of micturition; J45.909 Unspecified asthma, uncomplicated
CPT/HCPCS: 81001; 81025; 87086; 87088; 87186; 99283